=== PATIENT | male | born 1950 | race Caucasian/White ===

== ENCOUNTER 2022-11-19 10:32 | Inpatient (IN) ==
[2022-11-19] MEDS ORDERED: Aspirin EC 325 mg TAB.EC PO ONE (10:57)
[2022-11-19 11:11] LABS: ABS Eosinophils 0.2 10^3/uL (0.0-0.5); ABS Lymphocytes 1.1 10^3/uL (1.0-4.8); ABS Monocytes 0.6 10^3/uL (0.0-1.1); ABS Neutrophils 7.2 10^3/uL (1.5-7.6); ABS Nucleated RBC 0.01 10^3/ul; Eosinophil % 2.5 %; Hematocrit 46.5 % (38-53); Hemoglobin 15.8 g/dL (13.2-16.3); Lymphocyte % 11.6 %; Mean Corpuscular Hemoglobin 31.3 pg (27-33); Mean Corpuscular Hgb Conc 33.9 g/dL (31-36); Mean Corpuscular Volume 92.3 fL (80-97); Mean Platelet Volume 7.1 fL (7.5-11.2); Nucleated Red Blood Cells % 0.1 /100 WBC (0.0-0.4); Platelet Count 185 10^3/uL (150-450); Red Blood Count 5.03 10^6/uL (4.06-5.63); Red Cell Distribution Width 15.1 % (12-17); White Blood Count 9.1 10^3/uL (3.6-10.2)
[2022-11-19] MEDS ORDERED: Iodixanol (CONTRAST) 320 MG/ML 100 ML SDV IV ONE (11:19)
[2022-11-19 11:22] LABS: INR 1.2 (0.88-1.18)
[2022-11-19 11:33] LABS: Albumin 4.1 g/dL (3.2-5.2); Albumin/Globulin Ratio 1.6 (1-3); Calcium 9.2 mg/dL (8.6-10.3); Creatinine, Serum 0.85 mg/dL (0.67-1.17); Globulin 2.5 g/dL (2-4); Potassium 3.8 mmol/L (3.5-5.0); Total Bilirubin 0.7 mg/dL (0.2-1.0); Total Protein 6.6 g/dL (6.4-8.9); eGFR CKD-EPI 93.5 (>60)
[2022-11-19 12:31] LABS: High Sensitivity Troponin 1 Hr 177 pg/mL (<20)
[2022-11-19] MEDS ORDERED: Furosemide 20 mg/2 ml IV VIAL IV SLOW PU ONE (13:31)
[2022-11-19] MEDS ORDERED: Enoxaparin 80 MG/0.8 ML SYR SUBCUT SCH (14:00)
[2022-11-19] MEDS ORDERED: Albuterol/Ipratropium NEB.SOL (2.5/0.5 MG) 3 ML NEB.SOLN INH PRN (14:51)
[2022-11-20] MEDS ORDERED: Enoxaparin 80 MG/0.8 ML SYR SUBCUT SCH (05:00)
[2022-11-20 06:19] LABS: ABS Eosinophils 0.2 10^3/uL (0.0-0.5); ABS Lymphocytes 1.2 10^3/uL (1.0-4.8); ABS Monocytes 0.8 10^3/uL (0.0-1.1); ABS Neutrophils 7.9 10^3/uL (1.5-7.6); Eosinophil % 2.1 %; Hematocrit 48.1 % (38-53); Hemoglobin 16.5 g/dL (13.2-16.3); Lymphocyte % 11.8 %; Mean Corpuscular Hemoglobin 31.6 pg (27-33); Mean Corpuscular Hgb Conc 34.2 g/dL (31-36); Mean Corpuscular Volume 92.2 fL (80-97); Mean Platelet Volume 7.3 fL (7.5-11.2); Platelet Count 178 10^3/uL (150-450); Red Blood Count 5.22 10^6/uL (4.06-5.63); White Blood Count 10.1 10^3/uL (3.6-10.2)
[2022-11-20 06:43] LABS: Calcium 9.4 mg/dL (8.6-10.3); Creatinine, Serum 0.75 mg/dL (0.67-1.17); Potassium 3.3 mmol/L (3.5-5.0); eGFR CKD-EPI 97.1 (>60)
[2022-11-20 07:32] VITALS: BP 91/65
[2022-11-20] MEDS ORDERED: KCL 20 MEQ/100 ML IVPREMIX 20 MEQ/100 ML BAG IV ONE (08:21)
[2022-11-20] MEDS ORDERED: KCL 10 MEQ/50 ML IVPREMIX 20 MEQ/100 ML BAG ONE (08:22)
[2022-11-20] MEDS ORDERED: Aspirin EC 81 mg TAB.EC (enteric coated) PO SCH (09:00)
[2022-11-20] MEDS ORDERED: Tiotropium Brom/Olodaterol MDI (ACUTE) INH SCH (09:00)
[2022-11-20] MEDS ORDERED: Cholecalciferol (VIT D3) 1,000 unit TAB PO SCH (09:00)
[2022-11-20] MEDS ORDERED: Isosorbide Mononit ER 60mg TAB PO SCH (09:00)
[2022-11-20] MEDS ORDERED: Furosemide 20 mg/2 ml IV VIAL IV ONE (09:10)
[2022-11-20] MEDS ORDERED: Furosemide 20 mg/2 ml IV VIAL ONE (09:10)
[2022-11-20] MEDS ORDERED: nitroGLYCERIN DRIP 25,000 MCG/250 ML BTL ONE ×2 (09:28→09:55)
[2022-11-20] MEDS ORDERED: Midazolam 5 mg/5 ml VIAL 1 mg/ml 5 ml VIAL (5 mg) ONE ×3 (09:54→12:52)
[2022-11-20] MEDS ORDERED: fentaNYL 100 mcg/2 ml 50 MCG/ML VIAL ONE ×3 (09:54→14:03)
[2022-11-20] MEDS ORDERED: VERAPAMIL 2.5 MG/ML 2 ML VIAL ** 5 mg/2 ml ONE (09:54)
[2022-11-20] MEDS ORDERED: Heparin 1,000 UNIT/ML 10 ml (10,000 UNITS) CATHLAB/DIALYSIS ONE (09:54)
[2022-11-20] MEDS ORDERED: Iohexol 350 (CONTRAST) 200 ML MDV IV ONE (09:55)
[2022-11-20] MEDS ORDERED: Iohexol 350 (CONTRAST) 100 ML PAK IV ONE (09:55)
[2022-11-20] MEDS ORDERED: Lidocaine 1% MPF 5 ML VIAL ONE ×2 (09:55→10:54)
[2022-11-20] MEDS ORDERED: Heparin 2 UNITS/ML 1000 mls 3,000 ML IV ONE (09:55)
[2022-11-20] MEDS ORDERED: Heparin 2 UNITS/ML 1000 mls 2,000 ML IV ONE (10:21)
[2022-11-20] MEDS ORDERED: Furosemide 40 mg/4 ml IV VIAL ONE (10:29)
[2022-11-20] MEDS ORDERED: Propofol 10 MG/ML 20 ML BTL ONE ×2 (10:31→11:13)
[2022-11-20] MEDS ORDERED: Succinylcholine 200 mg VIAL 20 mg/ml 10 ml VIAL (200 mg) ONE (10:32)
[2022-11-20] MEDS ORDERED: Phenylephrine 40 mcg/mL 10mL (400mcg) SYRINGE ONE (10:34)
[2022-11-20] MEDS ORDERED: Rocuronium 50 mg VIAL 10 mg/ml 5 ml VIAL (50 mg) ONE ×3 (10:52→13:51)
[2022-11-20] MEDS ORDERED: EPINEPHrine SYR 0.1MG/ML 10 ml SYRINGE IV ONE (11:01)
[2022-11-20] MEDS ORDERED: Sevoflurane BOTTLE ONE (11:01)
[2022-11-20] MEDS ORDERED: Propofol 10 mg/ml 100 ML BTL 1,000 MG/100 ML BTL ONE ×2 (11:11→13:27)
[2022-11-20] MEDS ORDERED: Norepinephrine 16MCG/ML BAGD5W 4,000 MCG/250 ML BAG IV ONE (12:29)
[2022-11-20] MEDS ORDERED: Esmolol 10 MG/ML 10 ML (100 mg) IV ONE ×2 (13:01→13:03)
[2022-11-20] MEDS ORDERED: Heparin DRIP 25,000 UNITS BAG 25,000 UNITS/500 ML BAG ONE (13:08)
[2022-11-20] MEDS ORDERED: Artificial Tear OPHTH.OINT 3.5 GM ONE (13:51)
[2022-11-20 14:56] LABS: POC SO2 62 %
[2022-11-20 14:56] LABS: POC SO2 96 %
== END 2022-11-20 13:00 | disposition short-term general hospital (02) | DRG 271 ==
LOC: EDHOLD 10:32 → ED 10:32 → SUATTDRO 12:56 → EDHOLD 16:21 → MEDTELE 16:40
PROVIDERS: ADMIT Hospitalist; ATTEND Internal Medicine